=== PATIENT | female | born 1955 | race Caucasian/White ===

== ENCOUNTER 2018-02-07 17:46 | Emergency (ER) | payer OTHER ==
[2018-02-07] MEDS ORDERED: METHYLPREDNISOLONE 125 MG INJ ONE (18:06)
[2018-02-07] MEDS ORDERED: FAMOTIDINE 20 MG/2 ML VIAL IV ONE (18:06)
[2018-02-07] MEDS ORDERED: NA CHLORIDE 0.9% 1,000 ML ONE (18:06)
[2018-02-07] MEDS ORDERED: HYDROCODONE/APAP 7.5/325 MG TAB ONE (18:46)
--- NOTE | 2018-02-07 19:30 | ER ---
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 Stings noted to bilateral cheeks, right side of neck, bilateral flanks, and left arm. 20G RIGHT hand, Benadryl 25mg IVP administered PRINCIPAL MECHANICAL ENGINEER. Transition of care: patient was not received from another setting of care. Onset: The symptoms/episode began/occurred acutely. Anaphylaxis evaluation, the patient reports or I have noted the following symptoms which indicate a significant risk of anaphylaxis:. Onset of symptoms was February 07, 2018. Risk Assessment: Do you want to hurt yourself or someone else? Patient reports no desire to harm self or others. Initial Sepsis Screen: Does the patient meet any 2 criteria? No. Patient's initial sepsis screen is negative. Does the patient have a suspected source of infection? No. Patient's initial sepsis screen is negative. Care prior to arrival: Medication(s) given: Benadryl 25mg IVP IV initiated. 20 GA, in the right wrist. 17:49 Method Of Arrival: EMS: [facility] 17:49 Acuity: JULIAN 2 hb Triage Assessment: 17:55 General: Appears in no apparent distress. Behavior is cooperative, anxious. Pain: Pain hb currently is 3 out of 10 on a pain scale. EENT: No signs and/or symptoms were reported regarding the EENT system. Neuro: Level of Consciousness is awake, alert, obeys commands, Oriented to person, place, time, situation. Cardiovascular: Capillary refill < 3 seconds Patient's skin is warm and dry. Respiratory: Airway is patent Trachea midline Respiratory effort is even, unlabored, Respiratory pattern is regular, symmetrical, Breath sounds are clear bilaterally. GI: No signs and/or symptoms were reported involving the gastrointestinal system. : No signs and/or symptoms were reported regarding the genitourinary system. Derm: Skin is pink, warm \T\ dry. bee stings noted to bilateral cheeks, right side of neck, bilateral flanks, right hip, under right arm. Musculoskeletal: No signs and/or symptoms reported regarding the musculoskeletal system. Historical: - Allergies: 17:55 Erythromycin; hb - Home Meds: 17:55 None [Active]; hb - PMHx: 17:55 None; hb - PSHx: 17:55 None; hb - Immunization history:: Adult Immunizations up to date. - Social history:: Smoking status: Patient/guardian denies using tobacco. - Ebola Screening: : No symptoms or risks identified at this time. Screenin:56 Abuse screen: Denies threats or abuse. Denies injuries from another. Nutritional hb screening: No deficits noted. Tuberculosis screening: No symptoms or risk factors identified. Fall Risk None identified. Assessment: 17:56 General: see triage assessment. hb 18:33 Reassessment: Patient appears in no apparent distress at this time. No changes from hb previously documented assessment. Patient and/or family updated on plan of care and expected duration. Pain level reassessed. Patient is alert, oriented x 3, equal unlabored respirations, skin warm/dry/pink. 19:17 Reassessment: Patient appears in no apparent distress at this time. Patient and/or cc3 family updated on plan of care and expected duration. Pain level reassessed. Patient is alert, oriented x 3, equal unlabored respirations, skin warm/dry/pink. Received from morning duty as a case of bee sting. With intravenous cannula gauge 20 at the right hand with ongoing IV fluid of 1 liter NS infusing well. 19:40 Reassessment: Patient appears in no apparent distress at this time. Patient and/or cc3 family updated on plan of care and expected duration. Pain level reassessed. Patient is alert, oriented x 3, equal unlabored respirations, skin warm/dry/pink. Patient is discharged home with prescription given. Intravenous cannula removed and patient went out of ER vitally stable and ambulatory. Patient states feeling better. Vital Signs: 17:49 BP 158 / 86; Pulse 147; Resp 17; Temp 97.9; Pulse Ox 100% on R/A; Pain 3/10; hb 18:34 BP 142 / 87; Pulse 95; Resp 17; Pulse Ox 100% on R/A; hb 19:14 BP 137 / 77; Pulse 90; Resp 18 S; Temp 98.2(O); Pulse Ox 100% ; Pain 0/10; cc3 ED Course: 17:48 Patient arrived in ED. hb 17:49 Karolyn Freeman FNP-C is [facility]. kb 17:49 Camilo Ingram MD is Attending Physician. kb 17:53 Triage completed. hb 17:54 Arm band placed on right wrist. hb 17:56 Patient has correct armband on for positive identification. Placed in gown. Bed in low hb position. Call light in reach. Side rails up X 1. 17:56 Maintain EMS IV. Dressing intact. Good blood return noted. Site clean \T\ dry. Gauge \T\ hb site: 20g right hand. 18:09 Kenyatta Harris, RN is Primary Nurse. hb 19:40 No provider procedures requiring assistance completed. IV discontinued, intact, cc3 bleeding controlled, No redness/swelling at site. Pressure dressing applied. Administered Medications: 18:09 Drug: NS 0.9% 1000 ml Route: IV; Rate: 1000 ml; Site: right antecubital; hb 19:30 Follow up: Response: No adverse reaction; IV Status: Completed infusion; IV Intake: cc3 1000ml 18:10 Drug: Pepcid 20 mg Route: IVP; Site: right hand; hb 18:42 Follow up: Response: No adverse reaction hb 18:10 Drug: SOLU-Medrol 125 mg Route: IVP; Site: right hand; hb 18:42 Follow up: Response: No adverse reaction hb 18:42 Drug: [place] (7.5 mg-325 mg) 1 tabs Route: PO; hb 19:15 Follow up: Response: No adverse reaction cc3 Intake: 19:30 IV: 1000ml; Total: 1000ml. cc3 Outcome: 19:30 Discharge ordered by . kb 19:40 Discharged to home ambulatory, with family. cc3 19:40 Condition: stable 19:40 Discharge instructions given to patient, family, Instructed on discharge instructions, follow up and referral plans. medication usage, Demonstrated understanding of instructions, follow-up care, medications, Prescriptions given X 3. 19:46 Patient left the ED. cc3 Signatures: Karolyn Freeman FNP-C TRUCK SERVICE TECHNICIAN-Ckb Kenyatta Harris, LEON RN Juliann Fay cc3 Corrections: (The following items were deleted from the chart) 17:54 17:49 Care prior to arrival: None. hb hb
--- NOTE | 2018-02-07 19:31 | EDPHYS ---
Physician Documentation [facility] Name: Davida Conrad Age: 62 yrs Sex: Female : 1955 Arrival Date: 02/07/2018 Time: 17:48 Bed 5 Private MD: ED Physician Camilo Ingram HPI: 02/07 17:55 This 62 yrs old Female presents to ER via EMS with complaints of Bee Sting. kb 17:55 The patient was bitten on the left jaw and right jaw and left lateral posterior chest, kb by a bee, outdoors. Onset: The symptoms/episode began/occurred just prior to arrival. Animal information: bee. Secondary to the bite the patient reports erythema, pain, swelling. Associated signs and symptoms: Pertinent positives: erythema at site, pain at site, swelling at site. Severity of symptoms: At their worst the symptoms were mild, in the emergency department the symptoms are unchanged. The patient has not experienced similar symptoms in the past. The patient has not recently seen a physician. Pt presents after multiple bee stings to trunk and face. Denies allergy to bees. . Historical: - Allergies: 17:55 Erythromycin; hb - Home Meds: 17:55 None [Active]; hb - PMHx: 17:55 None; hb - PSHx: 17:55 None; hb - Immunization history:: Adult Immunizations up to date. - Social history:: Smoking status: Patient/guardian denies using tobacco. - Ebola Screening: : No symptoms or risks identified at this time. ROS: 17:54 Constitutional: Negative for fever, chills, and weight loss, Cardiovascular: Negative kb for chest pain, palpitations, and edema, Respiratory: Negative for shortness of breath, cough, wheezing, and pleuritic chest pain, Abdomen/GI: Negative for abdominal pain, nausea, vomiting, diarrhea, and constipation, Back: Negative for injury and pain, : Negative for injury, bleeding, discharge, and swelling, MS/Extremity: Negative for injury and deformity, Neuro: Negative for headache, weakness, numbness, tingling, and seizure. 17:54 Skin: Positive for erythema, swelling, of the left jaw and right jaw and left lateral posterior chest. Exam: 17:53 Constitutional: This is a well developed, well nourished patient who is awake, alert, kb and in no acute distress. Head/Face: Normocephalic, atraumatic. Chest/axilla: Normal chest wall appearance and motion. Nontender with no deformity. No lesions are appreciated. Cardiovascular: Regular rate and rhythm with a normal S1 and S2. No gallops, murmurs, or rubs. Normal PMI, no JVD. No pulse deficits. Respiratory: Lungs have equal breath sounds bilaterally, clear to auscultation and percussion. No rales, rhonchi or wheezes noted. No increased work of breathing, no retractions or nasal flaring. Abdomen/GI: Soft, non-tender, with normal bowel sounds. No distension or tympany. No guarding or rebound. No evidence of tenderness throughout. MS/ Extremity: Pulses equal, no cyanosis. Neurovascular intact. Full, normal range of motion. Neuro: Awake and alert, GCS 15, oriented to person, place, time, and situation. Cranial nerves II-XII grossly intact. Motor strength 5/5 in all extremities. Sensory grossly intact. Cerebellar exam normal. Normal gait. 17:53 Skin: injury, bite(s), superficial, of the right jaw, left jaw and left lateral posterior chest, reddened areas s/p bee stings, no stingers noted.. Vital Signs: 17:49 BP 158 / 86; Pulse 147; Resp 17; Temp 97.9; Pulse Ox 100% on R/A; Pain 3/10; hb 18:34 BP 142 / 87; Pulse 95; Resp 17; Pulse Ox 100% on R/A; hb 19:14 BP 137 / 77; Pulse 90; Resp 18 S; Temp 98.2(O); Pulse Ox 100% ; Pain 0/10; cc3 MDM: 17:49 Patient medically screened. kb 17:54 Data reviewed: vital signs, nurses notes. Data interpreted: Pulse oximetry: on room air kb is 100 %. Interpretation: normal. 19:29 Counseling: I had a detailed discussion with the patient and/or guardian regarding: the kb historical points, exam findings, and any diagnostic results supporting the discharge/admit diagnosis, the need for outpatient follow up, a family practitioner, to return to the emergency department if symptoms worsen or persist or if there are any questions or concerns that arise at home. Administered Medications: 18:09 Drug: NS 0.9% 1000 ml Route: IV; Rate: 1000 ml; Site: right antecubital; hb 19:30 Follow up: Response: No adverse reaction; IV Status: Completed infusion; IV Intake: cc3 1000ml 18:10 Drug: Pepcid 20 mg Route: IVP; Site: right hand; hb 18:42 Follow up: Response: No adverse reaction hb 18:10 Drug: SOLU-Medrol 125 mg Route: IVP; Site: right hand; hb 18:42 Follow up: Response: No adverse reaction hb 18:42 Drug: [place] (7.5 mg-325 mg) 1 tabs Route: PO; hb 19:15 Follow up: Response: No adverse reaction cc3 Disposition: 02/07/18 19:30 Discharged to Home. Impression: Bitten or stung by nonvenomous insect and other nonvenomous arthropods. - Condition is Stable. - Discharge Instructions: Bee, Wasp, or Hornet Sting, Adult. - Prescriptions for Pepcid 20 mg Oral Tablet - take 1 tablet by ORAL route every 12 hours for 5 days; 10 tablet. Prednisone 20 mg Oral Tablet - take 1 tablet by ORAL route once daily for 5 days; 5 tablet. Tramadol 50 mg Oral Tablet - take 1 tablet by ORAL route every 8 hours as needed; 12 tablet. - Medication Reconciliation Form, Thank You Letter, Antibiotic Education, Prescription Opioid Use form. - Follow up: Emergency Department; When: As needed; Reason: Worsening of condition. Follow up: Private Physician; When: 2 - 3 days; Reason: Recheck today's complaints, Continuance of care, Re-evaluation by your physician. Addendum: 02/12/2018 07:04 Co-signature as Attending Physician, Camilo Ingram MD. r n Signatures: Karolyn Freeman, RADIOLOGY ASST-C RADIOLOGY ASST-Ckb Camilo Ingram MD MD rn Baxter, Heather, RN RN hb Cordel, Charlene cc3 Corrections: (The following items were deleted from the chart) 02/07 17:54 17:53 Skin: injury, bite(s), superficial, of the right jaw, left jaw and left lateral kb posterior chest, kb 19:46 19:30 02/07/2018 19:30 Discharged to Home. Impression: Bitten or stung by nonvenomous cc3 insect and other nonvenomous arthropods. Condition is Stable. Forms are Medication Reconciliation Form, Thank You Letter, Antibiotic Education, Prescription Opioid Use. Follow up: Emergency Department; When: As needed; Reason: Worsening of condition. Follow up: Private Physician; When: 2 - 3 days; Reason: Recheck today's complaints, Continuance of care, Re-evaluation by your physician. kb
== END 2018-02-07 19:46 | disposition home or self-care (01) ==
LOC: ER 17:46
DX: R22.2 Localized swelling, mass and lump, trunk (principal); W57.XXXA Bitten or stung by nonvenomous insect and other nonvenomous arthropods, initial encounter; Y93.9 Activity, unspecified; Y92.9 Unspecified place or not applicable; Z88.3 Allergy status to other anti-infective agents
CPT/HCPCS: 96361; 96374; 96375; 99283; J2930; J7030